=== PATIENT | male | born 1995 | race African-American/Black ===

== ENCOUNTER 2017-08-27 11:45 | Emergency (ER) | payer MEDICAID, SELFPAY ==
[2017-08-27 12:10] LABS: #Lymphocytes 1.3 thou/uL (1.20-3.40); #Monocytes 0.5 thou/uL (0.11-0.59); %Basophils 0.5 % (0.0-1.0); %Eosinophils 0.9 % (0.0-10.0); %Neutrophils 51.6 % (31.0-61.0); Hemoglobin 16.5 g/dL (14.0-18.0); Mean Corpuscular HGB CONC 33.9 g/dL (32.0-36.0); Mean Corpuscular Hemoglobin 30.9 pg (25.0-35.0); Mean Corpuscular Volume 91.3 fl (77.0-87.0); Mean Platelet Volume 6.3 fL (7.4-10.4); Platelet Count 262 thou/uL (130-400); RBC Distribution Width 11.7 % (11.5-14.5); Red Blood Cell (RBC) Count 5.32 mill/uL (4.00-5.20); White Blood Cell (WBC) Count 3.9 thou/uL (4.8-10.8)
[2017-08-27 12:36] LABS: ALT (SGPT) 13 U/L (8-55); AST (SGOT) 21 U/L (10-45); Albumin 4.5 g/dL (3.5-5.0); Alkaline Phosphatase 55 U/L (Less than 750); Anion Gap 13 mmol/L (10-20); BUN (Urea Nitrogen) 7 mg/dL (8.4-21.0); Bilirubin, Total 0.6 mg/dL (0.2-1.2); CK (CPK) 552 U/L (30-200); Calc. Creatinine Clearance 0 mL/min (70-130); Carbon Dioxide 27 mmol/L (22-29); Chloride 104 mmol/L (98-107); Estimated GFR-MDRD Greater than 90; Globulin 3.5 g/dL (2.4-3.5); Glucose 85 mg/dL (70-105); Sodium 140 mmol/L (136-145)
[2017-08-27 12:40] LABS: CKMB 2.2 ng/mL (0-6.6); Troponin I Less than 0.010 ng/mL (< 0.028)
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
--- NOTE | 2017-08-30 19:59 | EKG ---
Test Reason : Blood Pressure : / mmHG Vent. Rate : 068 BPM Atrial Rate : 068 BPM P-R Int : 142 ms QRS Dur : 092 ms QT Int : 360 ms P-R-T Axes : 018 069 053 degrees QTc Int : 382 ms Sinus rhythm with marked sinus arrhythmia ST elevation, consider early repolarization Borderline ECG Confirmed by ISATU CAMP ([id number]), associate entertainment editor CALISTA BOYD ([id number] on 08/30/2017 7:59:21 PM Referred By: Confirmed By:ISATU CAMP
== END 2017-08-27 13:53 | disposition home or self-care (01) ==
LOC: ERS 11:45
DX: R07.9 Chest pain, unspecified (principal); J45.909 Unspecified asthma, uncomplicated; Z79.899 Other long term (current) drug therapy
CPT/HCPCS: 71045; 80053; 82550; 82553; 84484; 85025; 85379; 93005; 96360

== ENCOUNTER 2017-09-15 12:59 | Emergency (ER) | payer SELFPAY ==
[2017-09-15 14:16] LABS: #Lymphocytes 1.4 thou/uL (1.20-3.40); #Monocytes 0.6 thou/uL (0.11-0.59); #Neutrophils 6.1 thou/uL (1.40-6.50); %Basophils 0.3 % (0.0-1.0); %Eosinophils 0.2 % (0.0-10.0); %Lymphocytes 17.4 % (28.0-48.0); %Monocytes 7.1 % (0.0-4.0); %Neutrophils 75.1 % (31.0-61.0); Hemoglobin 16.4 g/dL (14.0-18.0); Mean Corpuscular HGB CONC 35.5 g/dL (32.0-36.0); Mean Corpuscular Hemoglobin 32.2 pg (25.0-35.0); Mean Corpuscular Volume 90.7 fl (77.0-87.0); Mean Platelet Volume 6.2 fL (7.4-10.4); Platelet Count 298 thou/uL (130-400); RBC Distribution Width 11.6 % (11.5-14.5); Red Blood Cell (RBC) Count 5.08 mill/uL (4.00-5.20); White Blood Cell (WBC) Count 8.1 thou/uL (4.8-10.8)
[2017-09-15] MEDS ORDERED: HYDROcodone/Acetaminophen 5/325 mg Tablet ONE (14:17)
[2017-09-15] MEDS ORDERED: ISOVUE-370 76%-LOCM 1 ML ONE (14:38)
[2017-09-15 14:39] LABS: ALT (SGPT) 16 U/L (8-55); AST (SGOT) 19 U/L (10-45); Albumin 4.3 g/dL (3.5-5.0); Alkaline Phosphatase 54 U/L (Less than 750); Anion Gap 14 mmol/L (10-20); BUN (Urea Nitrogen) 11 mg/dL (8.4-21.0); Bilirubin, Total 0.3 mg/dL (0.2-1.2); Calc. Creatinine Clearance 0 mL/min (70-130); Calcium 9.9 mg/dL (7.8-10.44); Carbon Dioxide 24 mmol/L (22-29); Chloride 104 mmol/L (98-107); Estimated GFR-MDRD Greater than 90; Globulin 3.7 g/dL (2.4-3.5); Glucose 86 mg/dL (70-105); Potassium 3.8 mmol/L (3.5-5.1); Sodium 138 mmol/L (136-145)
[2017-09-15 14:43] LABS: CKMB 1.9 ng/mL (0-6.6); Troponin I Less than 0.010 ng/mL (< 0.028)
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
== END 2017-09-15 16:20 | disposition home or self-care (01) ==
LOC: ERS 12:59
DX: R07.2 Precordial pain (principal); Y04.8XXA Assault by other bodily force, initial encounter; J45.909 Unspecified asthma, uncomplicated
CPT/HCPCS: 36415; 71046; 71260; 80053; 82553; 84484; 85025; 93005

== ENCOUNTER 2017-09-16 20:05 | Emergency (ER) | payer SELFPAY ==
[2017-09-16] MEDS ORDERED: HYDROcodone/Acetaminophen 5/325 mg Tablet ONE (21:10)
--- NOTE | 2017-09-16 21:37 | RAD ---
CHEST ONE VIEW: 09/16/17 HISTORY: Pain. COMPARISON: 08/27/17. FINDINGS: Portable single view chest: Normal cardiac silhouette. Pulmonary vessels and hilum are normal. Costophrenic angles are clear. No masses or consolidation. No pneumothorax or osseous abnormalities. IMPRESSION: No acute cardiopulmonary process. POS: [facility]
== END 2017-09-16 22:56 | disposition home or self-care (01) ==
LOC: ERS 20:05
DX: R07.89 Other chest pain (principal); J45.909 Unspecified asthma, uncomplicated; G40.909 Epilepsy, unspecified, not intractable, without status epilepticus; Z79.899 Other long term (current) drug therapy
CPT/HCPCS: 71045; 93005

== ENCOUNTER 2017-09-28 15:54 | Emergency (ER) | payer SELFPAY ==
[2017-09-28 16:41] LABS: #Lymphocytes 1.1 thou/uL (1.20-3.40); #Monocytes 0.4 thou/uL (0.11-0.59); %Basophils 0.2 % (0.0-1.0); %Eosinophils 0.3 % (0.0-10.0); %Lymphocytes 19.4 % (28.0-48.0); %Monocytes 7.7 % (0.0-4.0); %Neutrophils 72.4 % (31.0-61.0); Hemoglobin 14.5 g/dL (14.0-18.0); Mean Corpuscular HGB CONC 34.6 g/dL (32.0-36.0); Mean Corpuscular Hemoglobin 31.6 pg (25.0-35.0); Mean Corpuscular Volume 91.1 fl (77.0-87.0); Mean Platelet Volume 6.3 fL (7.4-10.4); Platelet Count 242 thou/uL (130-400); RBC Distribution Width 11.8 % (11.5-14.5); Red Blood Cell (RBC) Count 4.59 mill/uL (4.00-5.20); White Blood Cell (WBC) Count 5.5 thou/uL (4.8-10.8)
[2017-09-28 16:48] LABS: INR-International Normal Ratio 1.2; PTT 27.4 SEC (22.9-36.1); Prothrombin Time 15.8 SEC (12.0-14.7)
[2017-09-28 16:50] LABS: Bilirubin Small (Negative); Blood, Urine Negative (Negative); Clarity CLEAR (Clear); Glucose, Urine (Dipstick) Negative (Negative); Leukocyte Moderate (Negative); Nitrite Negative (Negative); Protein, Urine (Dipstick) 30 mg/dL (Neg-Trace); Specific Gravity, Urine 1.037 (1.002-1.036)
[2017-09-28 16:52] LABS: Bacteria/HPF None Seen HPF (None Seen); Pathc Cast-AUWi Flag 0.29 (0-2.49); RBC/HPF 0-3 HPF (0-3); Squamous Epithelial 0-3 HPF (0-3); WBC/HPF 21-50 HPF (0-3)
[2017-09-28 17:00] LABS: Amphetamine Not Detected (NotDetected); Barbiturates Screen Not Detected (NotDetected); Benzodiazepine Screen Not Detected (NotDetected); Cocaine Metabolite Screen Not Detected (NotDetected); Medtox Control Line Valid? VALID (VALID); Medtox Reader # READER 4; Methadone Not Detected (NotDetected); Methamphetamine Not Detected (NotDetected); Opiate Screen Not Detected (NotDetected); Oxycodone Screen Not Detected (NotDetected); Phencyclidine (PCP) Not Detected (NotDetected); THC/Cannabinoid Screen Detected (NotDetected); Tricyclic Screen Not Detected (NotDetected)
[2017-09-28 17:03] LABS: ALT (SGPT) 12 U/L (8-55); AST (SGOT) 29 U/L (10-45); Acetaminophen Less than 6.0 mcg/mL (10.0-30.0); Alcohol Less than 10 mg/dL (Less than 10); Alkaline Phosphatase 46 U/L (Less than 750); Anion Gap 12 mmol/L (10-20); BUN (Urea Nitrogen) 8 mg/dL (8.4-21.0); Bilirubin, Total 0.4 mg/dL (0.2-1.2); Calc. Creatinine Clearance 0 mL/min (70-130); Calcium 8.6 mg/dL (7.8-10.44); Carbon Dioxide 25 mmol/L (22-29); Chloride 104 mmol/L (98-107); Estimated GFR-MDRD Greater than 90; Glucose 122 mg/dL (70-105); Potassium 3.8 mmol/L (3.5-5.1); Salicylate Less than 8.0 mg/dL (15.0-30.0); Sodium 137 mmol/L (136-145)
[2017-09-28 17:06] LABS: Hyaline Casts/LPF 0-3 HYALINE CAST LPF (0-3 Hyaline)
[2017-09-28] MEDS ORDERED: cefTRIAXone\\ROCEPHIN 250 MG VIAL ONE (18:15)
[2017-09-28] MEDS ORDERED: Azithromycin 250 MG TAB ONE ×2 (18:15→18:19)
[2017-09-30 23:29] LABS: Chlamydia by PCR DETECTED (NotDetected); GC by PCR Not Detected (NotDetected)
== END 2017-09-28 19:42 | disposition home or self-care (01) ==
LOC: ERS 15:54
DX: N34.2 Other urethritis (principal); M62.82 Rhabdomyolysis; F12.10 Cannabis abuse, uncomplicated; G40.909 Epilepsy, unspecified, not intractable, without status epilepticus; J45.909 Unspecified asthma, uncomplicated
CPT/HCPCS: 36415; 80053; 80306; 80307; 81003; 81015; 82550; 84443; 85025; 85610; 85730; 87086; 87491; 87591; 93005; 96361; 96365; J0696

== ENCOUNTER 2017-09-29 14:48 | Emergency (ER) | payer SELFPAY ==
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
[2017-09-29 16:40] LABS: #Eosinphils 0.1 thou/uL (0.0-0.7); #Lymphocytes 1.6 thou/uL (1.20-3.40); #Monocytes 0.4 thou/uL (0.11-0.59); %Basophils 0.2 % (0.0-1.0); %Lymphocytes 32.4 % (28.0-48.0); %Monocytes 7.1 % (0.0-4.0); %Neutrophils 59.3 % (31.0-61.0); Hemoglobin 14.8 g/dL (14.0-18.0); Mean Corpuscular HGB CONC 34.8 g/dL (32.0-36.0); Mean Corpuscular Hemoglobin 31.8 pg (25.0-35.0); Mean Corpuscular Volume 91.5 fl (77.0-87.0); Mean Platelet Volume 6.4 fL (7.4-10.4); Platelet Count 251 thou/uL (130-400); RBC Distribution Width 11.9 % (11.5-14.5); Red Blood Cell (RBC) Count 4.64 mill/uL (4.00-5.20); White Blood Cell (WBC) Count 5.1 thou/uL (4.8-10.8)
[2017-09-29] MEDS ORDERED: Ibuprofen 200 MG TAB ONE (16:42)
[2017-09-29] MEDS ORDERED: Dexamethasone 10 MG/ML VIAL ONE ×2 (16:42→16:43)
[2017-09-29] MEDS ORDERED: Dexamethasone 4 MG TAB ONE (16:43)
[2017-09-29 17:00] LABS: ALT (SGPT) 14 U/L (8-55); AST (SGOT) 24 U/L (10-45); Albumin 3.8 g/dL (3.5-5.0); Alkaline Phosphatase 51 U/L (Less than 750); Anion Gap 10 mmol/L (10-20); BUN (Urea Nitrogen) 4 mg/dL (8.4-21.0); Bilirubin, Total 0.3 mg/dL (0.2-1.2); CK (CPK) 966 U/L (30-200); Calc. Creatinine Clearance 0 mL/min (70-130); Calcium 8.8 mg/dL (7.8-10.44); Carbon Dioxide 28 mmol/L (22-29); Chloride 105 mmol/L (98-107); Estimated GFR-MDRD Greater than 90; Globulin 3.2 g/dL (2.4-3.5); Glucose 95 mg/dL (70-105); Potassium 3.5 mmol/L (3.5-5.1); Sodium 139 mmol/L (136-145)
[2017-09-29 17:05] LABS: CKMB 1.9 ng/mL (0-6.6); Troponin I Less than 0.010 ng/mL (< 0.028)
== END 2017-09-29 18:13 | disposition home or self-care (01) ==
LOC: ERS 14:48
DX: R07.2 Precordial pain (principal); F13.10 Sedative, hypnotic or anxiolytic abuse, uncomplicated; G40.909 Epilepsy, unspecified, not intractable, without status epilepticus; J45.909 Unspecified asthma, uncomplicated; Z71.6 Tobacco abuse counseling
CPT/HCPCS: 36415; 71045; 80053; 82550; 82553; 84484; 85025; 93005; 96360; 99406; J1100; J8540

== ENCOUNTER 2017-10-01 18:28 | Emergency (ER) | payer SELFPAY ==
[2017-10-01] MEDS ORDERED: Acetaminophen 500 MG TAB ONE (18:49)
[2017-10-01 18:58] LABS: #Lymphocytes 1.9 thou/uL (1.20-3.40); #Monocytes 0.6 thou/uL (0.11-0.59); #Neutrophils 3.2 thou/uL (1.40-6.50); %Basophils 0.8 % (0.0-1.0); %Eosinophils 0.4 % (0.0-10.0); %Lymphocytes 33.4 % (28.0-48.0); %Neutrophils 55.3 % (31.0-61.0); Hemoglobin 17.9 g/dL (14.0-18.0); Mean Corpuscular HGB CONC 34.9 g/dL (32.0-36.0); Mean Corpuscular Hemoglobin 31.7 pg (25.0-35.0); Mean Platelet Volume 6.2 fL (7.4-10.4); Platelet Count 308 thou/uL (130-400); RBC Distribution Width 11.9 % (11.5-14.5); Red Blood Cell (RBC) Count 5.65 mill/uL (4.00-5.20); White Blood Cell (WBC) Count 5.7 thou/uL (4.8-10.8)
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
[2017-10-01 19:21] LABS: ALT (SGPT) 17 U/L (8-55); AST (SGOT) 22 U/L (10-45); Albumin 4.8 g/dL (3.5-5.0); Alkaline Phosphatase 56 U/L (Less than 750); Anion Gap 14 mmol/L (10-20); BUN (Urea Nitrogen) 11 mg/dL (8.4-21.0); Bilirubin, Total 0.7 mg/dL (0.2-1.2); Calc. Creatinine Clearance 0 mL/min (70-130); Carbon Dioxide 34 mmol/L (22-29); Chloride 96 mmol/L (98-107); Estimated GFR-MDRD Greater than 90; Glucose 91 mg/dL (70-105); Lipase 14 U/L (8-78); Potassium 3.3 mmol/L (3.5-5.1); Protein, Total 8.8 g/dL (6.0-8.3); Sodium 141 mmol/L (136-145)
[2017-10-01 19:22] LABS: CKMB 1.7 ng/mL (0-6.6); Troponin I Less than 0.010 ng/mL (< 0.028)
[2017-10-01 19:24] LABS: Bilirubin Negative (Negative); Blood, Urine Negative (Negative); Clarity CLEAR (Clear); Glucose, Urine (Dipstick) Negative (Negative); Leukocyte Trace (Negative); Nitrite Negative (Negative); Protein, Urine (Dipstick) Negative (Neg-Trace); Specific Gravity, Urine 1.009 (1.002-1.036); Urobilinogen 0.2 mg/dL (0.2-1.0)
[2017-10-01 19:26] LABS: Bacteria/HPF None Seen HPF (None Seen); Hyaline Casts/LPF 0-3 HYALINE CAST LPF (0-3 Hyaline); RBC/HPF 0-3 HPF (0-3); Squamous Epithelial None Seen HPF (0-3); WBC/HPF 0-3 HPF (0-3)
[2017-10-01 19:33] LABS: Amphetamine Not Detected (NotDetected); Barbiturates Screen Not Detected (NotDetected); Benzodiazepine Screen Not Detected (NotDetected); Cocaine Metabolite Screen Not Detected (NotDetected); Medtox Control Line Valid? VALID (VALID); Medtox Reader # READER 1; Methadone Not Detected (NotDetected); Methamphetamine Not Detected (NotDetected); Opiate Screen Not Detected (NotDetected); Oxycodone Screen Not Detected (NotDetected); Phencyclidine (PCP) Not Detected (NotDetected); THC/Cannabinoid Screen Not Detected (NotDetected); Tricyclic Screen Not Detected (NotDetected)
== END 2017-10-01 20:36 | disposition left against medical advice (07) ==
LOC: ERS 18:28
DX: R07.9 Chest pain, unspecified (principal); J45.909 Unspecified asthma, uncomplicated; G40.909 Epilepsy, unspecified, not intractable, without status epilepticus
CPT/HCPCS: 36415; 71045; 80053; 80306; 81003; 81015; 82553; 83690; 84484; 85025; 93005

== ENCOUNTER 2017-10-03 20:00 | Emergency (ER) | payer SELFPAY ==
[2017-10-03 20:28] LABS: #Basophils 0.1 thou/uL (0.0-0.2); #Eosinphils 0.1 thou/uL (0.0-0.7); #Lymphocytes 1.7 thou/uL (1.20-3.40); #Monocytes 0.7 thou/uL (0.11-0.59); #Neutrophils 2.4 thou/uL (1.40-6.50); %Basophils 1.1 % (0.0-1.0); %Eosinophils 1.1 % (0.0-10.0); %Lymphocytes 34.8 % (28.0-48.0); %Monocytes 13.3 % (0.0-4.0); %Neutrophils 49.6 % (31.0-61.0); Hemoglobin 16.1 g/dL (14.0-18.0); Mean Corpuscular HGB CONC 34.5 g/dL (32.0-36.0); Mean Corpuscular Hemoglobin 31.6 pg (25.0-35.0); Mean Corpuscular Volume 91.7 fl (77.0-87.0); Mean Platelet Volume 6.5 fL (7.4-10.4); Platelet Count 289 thou/uL (130-400); RBC Distribution Width 11.8 % (11.5-14.5); Red Blood Cell (RBC) Count 5.09 mill/uL (4.00-5.20); White Blood Cell (WBC) Count 4.9 thou/uL (4.8-10.8)
[2017-10-03 20:48] LABS: ALT (SGPT) 15 U/L (8-55); AST (SGOT) 19 U/L (10-45); Albumin 4.1 g/dL (3.5-5.0); Alkaline Phosphatase 52 U/L (Less than 750); Anion Gap 11 mmol/L (10-20); BUN (Urea Nitrogen) 16 mg/dL (8.4-21.0); Bilirubin, Total 0.4 mg/dL (0.2-1.2); CK (CPK) 198 U/L (30-200); Calc. Creatinine Clearance 0 mL/min (70-130); Calcium 9.3 mg/dL (7.8-10.44); Carbon Dioxide 34 mmol/L (22-29); Chloride 98 mmol/L (98-107); Estimated GFR-MDRD 84; Globulin 3.6 g/dL (2.4-3.5); Glucose 94 mg/dL (70-105); Potassium 3.7 mmol/L (3.5-5.1); Protein, Total 7.7 g/dL (6.0-8.3); Sodium 139 mmol/L (136-145)
[2017-10-03 20:52] LABS: CKMB 1.1 ng/mL (0-6.6); Troponin I Less than 0.010 ng/mL (< 0.028)
[2017-10-03 21:20] LABS: Amphetamine Not Detected (NotDetected); Barbiturates Screen Not Detected (NotDetected); Benzodiazepine Screen Not Detected (NotDetected); Cocaine Metabolite Screen Not Detected (NotDetected); Medtox Control Line Valid? VALID (VALID); Medtox Reader # READER 1; Methadone Not Detected (NotDetected); Methamphetamine Not Detected (NotDetected); Opiate Screen Not Detected (NotDetected); Oxycodone Screen Not Detected (NotDetected); Phencyclidine (PCP) Not Detected (NotDetected); THC/Cannabinoid Screen Not Detected (NotDetected); Tricyclic Screen Not Detected (NotDetected)
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
== END 2017-10-03 22:38 | disposition home or self-care (01) ==
LOC: ERS 20:00
DX: R07.9 Chest pain, unspecified (principal); G40.909 Epilepsy, unspecified, not intractable, without status epilepticus; J45.909 Unspecified asthma, uncomplicated
CPT/HCPCS: 36415; 71045; 80053; 80306; 82550; 82553; 84484; 85025; 93005; 94760

== ENCOUNTER 2017-10-12 14:02 | Emergency (ER) | payer SELFPAY | END 2017-10-12 17:01 | disposition home or self-care (01) | LOC: ERS 14:02 | DX: Z48.00 Encounter for change or removal of nonsurgical wound dressing (principal); T24.302D Burn of third degree of unspecified site of left lower limb, except ankle and foot, subsequent encounter; T24.301D Burn of third degree of unspecified site of right lower limb, except ankle and foot, subsequent encounter; T22.10XD Burn of first degree of shoulder and upper limb, except wrist and hand, unspecified site, subsequent encounter; J45.909 Unspecified asthma, uncomplicated; G40.909 Epilepsy, unspecified, not intractable, without status epilepticus | CPT/HCPCS: 99283 ==

== ENCOUNTER 2017-12-29 02:46 | Emergency (ER) | payer SELFPAY ==
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
--- NOTE | 2018-01-10 10:47 | EKG ---
Test Reason : Blood Pressure : / mmHG Vent. Rate : 085 BPM Atrial Rate : 085 BPM P-R Int : 126 ms QRS Dur : 090 ms QT Int : 350 ms P-R-T Axes : 028 076 051 degrees QTc Int : 416 ms Normal sinus rhythm RSR' or QR pattern in V1 suggests right ventricular conduction delay Early repolarization Borderline ECG Confirmed by KEYUR OLEARY, TRAM Villasenor ([id number]), market editor YG LEMUS ([id number]) on 01/10/2018 10:47:06 AM Referred By: Confirmed By:TRAM BAER MD
== END 2017-12-29 04:47 | disposition home or self-care (01) ==
LOC: ERS 02:46
DX: R07.82 Intercostal pain (principal); G40.909 Epilepsy, unspecified, not intractable, without status epilepticus; J45.909 Unspecified asthma, uncomplicated
CPT/HCPCS: 71046; 93005